=== PATIENT | male | born 1995 | race Two or more races ===

== ENCOUNTER 2023-05-10 18:32 | Emergency (ER) | payer OTHER ==
[2023-05-10 18:41] VITALS: BP 110/67; PULSE 57; RESP 19; TEMP 98.5; BMI 30.2
[2023-05-10] MEDS ORDERED: ACETAMINOPHEN 500 MG TABLET (FP) PO ONE (19:59)
[2023-05-10] MEDS ORDERED: LIDOCAINE 5% TOPICAL PATCH TP ONE (19:59)
[2023-05-10] MEDS ORDERED: CYCLOBENZAPRINE HCL 10 MG TABLET (FP) PO ONE (19:59)
[2023-05-10] MEDS ORDERED: KETOROLAC TROMETHAMINE 30 MG/1 ML VIAL IM ONE (19:59)
[2023-05-10] MEDS ORDERED: LIDOCAINE 5% TOPICAL PATCH ONE (20:06)
[2023-05-10] MEDS ORDERED: CYCLOBENZAPRINE HCL 10 MG TABLET (FP) ONE (20:06)
[2023-05-10] MEDS ORDERED: ACETAMINOPHEN 500 MG TABLET (FP) ONE (20:07)
[2023-05-10] MEDS ORDERED: KETOROLAC TROMETHAMINE 15 MG/ML VIAL ONE (20:07)
[2023-05-11] MEDS ORDERED: LIDOCAINE PATCH REMOVAL MC SCH (08:00)
== END 2023-05-10 21:49 | disposition home or self-care (01) ==
LOC: JERFT 18:32
PROC: 3E0233Z Introduction of Anti-inflammatory into Muscle, Percutaneous Approach (ICD-10-PCS; principal; 2023-05-10)
DX: M54.2 Cervicalgia (principal); M54.9 Dorsalgia, unspecified; R07.2 Precordial pain; M25.511 Pain in right shoulder; V49.50XA Passenger injured in collision with unspecified motor vehicles in traffic accident, initial encounter; Y93.I9 Activity, other involving external motion; Y92.810 Car as the place of occurrence of the external cause
CPT/HCPCS: 70450-TC; 71046-TC-FY; 99284-25